=== PATIENT | male | born 1960 | race Caucasian/White ===

== ENCOUNTER 2023-06-22 19:33 | Emergency (ER) | payer MEDICARE ==
[2023-06-22] MEDS ORDERED: Cephalexin 250 MG CAP ONE (22:42)
== END 2023-06-22 22:50 | disposition home or self-care (01) ==
LOC: CSHERS 19:33
DX: M71.22 Synovial cyst of popliteal space [Baker], left knee (principal); L03.116 Cellulitis of left lower limb; F17.210 Nicotine dependence, cigarettes, uncomplicated; I10 Essential (primary) hypertension

== ENCOUNTER 2023-08-05 10:03 | Emergency (ER) | payer MEDICARE ==
[2023-08-05 10:41] LABS: #Monocytes 0.7 10x3/uL (0.0-1.1); #Neutrophils 12.6 10x3/uL (1.5-8.4); %Basophils 0.2 % (0.0-2.0); %Eosinophils 0.1 % (0.0-6.0); %Lymphocytes 8.2 % (18.0-47.0); %Monocytes 4.7 % (0.0-10.0); %Neutrophils 86.5 % (40.0-75.0); Hematocrit 45.5 % (38.8-50.0); Hemoglobin 15.8 g/dL (13.5-17.5); Mean Corpuscular HGB CONC 34.7 g/dL (32.0-36.0); Mean Corpuscular Hemoglobin 33.4 pg (27.0-33.0); Mean Corpuscular Volume 96.2 fl (81.2-95.1); Mean Platelet Volume 9.4 fl (7.4-10.4); Platelet Count 239 10x3/uL (150-450); RBC Distribution Width 14.5 % (11.5-14.5); Red Blood Cell (RBC) Count 4.73 10x6/uL (4.32-5.72); White Blood Cell (WBC) Count 14.6 10x3/uL (3.5-10.5)
[2023-08-05 10:47] LABS: ALT (SGPT) 39 U/L (8-55); AST (SGOT) 37 U/L (5-34); Albumin 4.2 g/dL (3.4-4.8); Alkaline Phosphatase 72 U/L (40-110); Anion Gap 17 mmol/L (10-20); BUN (Urea Nitrogen) 17 mg/dL (8.4-25.7); Bilirubin, Total 0.5 mg/dL (0.2-1.2); Calc. Creatinine Clearance 0 mL/min (70-130); Carbon Dioxide 22 mmol/L (23-31); Chloride 105 mmol/L (98-107); Estimated GFR 96; Globulin 2.6 g/dL (2.4-3.5); Glucose 132 mg/dL (80-115); Potassium 4.1 mmol/L (3.5-5.1); Protein, Total 6.8 g/dL (5.8-8.1); Sodium 140 mmol/L (136-145)
[2023-08-05 10:50] LABS: Troponin I 0.016 ng/mL (< 0.028)
[2023-08-05] MEDS ORDERED: Aspirin Chewable 81 MG TAB ONE (11:38)
[2023-08-05] MEDS ORDERED: Azithromycin 500 MG VIAL ONE (11:39)
[2023-08-05] MEDS ORDERED: Nitroglycerin 0.4 MG TAB 1 EACH ONE (11:39)
[2023-08-05 14:12] LABS: Troponin I 0.016 ng/mL (< 0.028)
== END 2023-08-05 15:00 | disposition home or self-care (01) ==
LOC: CSHERS 10:03
DX: J18.9 Pneumonia, unspecified organism (principal); J84.10 Pulmonary fibrosis, unspecified; I10 Essential (primary) hypertension; F17.210 Nicotine dependence, cigarettes, uncomplicated; Z79.899 Other long term (current) drug therapy
CPT/HCPCS: 71045; 71275; 80053; 83605; 83690; 83880; 84484 ×2; 85025; 85379; 87040; 93005; 94760; J0456; 36415; 96365